=== PATIENT | female | born 1995 | race Caucasian/White ===

== ENCOUNTER 2018-02-18 20:16 | Inpatient (IN) | payer MEDICAID ==
[2018-02-18] MEDS ORDERED: RINGERS SOLUTION,LACTATED 1,000 ML IV ONE (20:41)
[2018-02-18] MEDS ORDERED: DINOPROSTONE 10 MG VAGINAL INSERT.SR PV ONE (20:43)
[2018-02-18 21:07] LABS: ABSOLUTE LYMPHOCYTES (AUTO) 2.4 10^3/uL (0.5-4.7); ABSOLUTE MONOCYTES (AUTO) 0.7 10^3/uL (0.1-1.4); BASOPHILS % (AUTO) 0.1 % (0-2); EOSINOPHILS % (AUTO) 0.3 % (0-6); HEMATOCRIT 36.5 % (36.0-47.0); HEMOGLOBIN 12.4 g/dL (12.0-15.5); LYMPHOCYTES % (AUTO) 21.7 % (13-45); MEAN CORPUSCULAR HGB CONC 33.9 g/dL (32.0-36.0); MEAN CORPUSCULAR VOLUME 86 fl (80-97); PLATELET COUNT 305 10^3/uL (150-450); RED BLOOD COUNT 4.27 10^6/uL (3.72-5.28); RED CELL DISTRIBUTION WIDTH 15.2 % (11.5-14.0); SEGMENTED NEUTROPHILS % (AUTO) 71.9 % (42-78); TOTAL CELLS COUNTED % (AUTO) 100 %; WHITE BLOOD COUNT 11.1 10^3/uL (4.0-10.5)
[2018-02-18 21:13] LABS: APPEARANCE,URINE CLOUDY; BILIRUBIN,URINE NEGATIVE (NEGATIVE); COLOR,URINE YELLOW; GLUCOSE, URINE NEGATIVE (NEGATIVE); KETONES,URINE NEGATIVE (NEGATIVE); LEUKOCYTE ESTERASE,URINE LARGE (NEGATIVE); NITRITE,URINE NEGATIVE (NEGATIVE); PROTEIN,URINE NEGATIVE (NEGATIVE); URINE SPECIFIC GRAVITY 1.013
[2018-02-18 21:28] LABS: URINE AMPHETAMINES SCREEN NEGATIVE; URINE BARBITURATES SCREEN NEGATIVE; URINE BENZODIAZEPINES SCREEN NEGATIVE; URINE COCAINE SCREEN NEGATIVE; URINE MARIJUANA (THC) SCREEN NEGATIVE; URINE METHADONE SCREEN NEGATIVE; URINE PHENCYCLIDINE SCREEN NEGATIVE
[2018-02-18] MEDS ORDERED: MISOPROSTOL 0.2 MG TABLET ONE (21:28)
[2018-02-18] MEDS ORDERED: LIDOCAINE 1% INJ-PF (10 MG/ML) 30 ML SDV ONE (21:28)
[2018-02-18] MEDS ORDERED: OXYTOCIN/NORMAL SALINE 20 UNIT/1,000 ML RTUINJ ONE (21:28)
[2018-02-18] MEDS ORDERED: DINOPROSTONE 10 MG VAGINAL INSERT.SR ONE (21:28)
[2018-02-18] MEDS: RINGERS SOLUTION,LACTATED 1,000 ML IV PRN (21:41)
--- NOTE | 2018-02-19 08:00 | Admission Physical ---
Datetime Report Generated by CPN: 02/19/2018 08:00 CURRENT ADMISSION Chief Complaint: Scheduled Induction of Labor Indication for Induction: Post Dates Admit Impression : Term, Intrauterine ; Induction of Labor Admit Plan: Admit to Unit; Initiate Labor Induction Protocol ALLERGIES Medication Allergies: No Medication Allergies: No Known Allergies (02/18/2018) Latex: No Latex Allergies OBSTETRICAL HISTORY EDC: 02/12/2018 00:00 : 1 Para: 0 Term: 0 : 0 SAB: 0 IAB: 0 Ectopic: 0 Livin Cesareans: 0 VBACs: 0 Multiple Births: 0 Gestational Diabetes: No Rh Sensitization: No Incompetent Cervix: No OJ: No Infertility: No ART Treatment: No Uterine Anomaly: No IUGR: No Hx Previous C/S: No Macrosomia: No Hx Loss/Stillborn: No PIH: No Hx : No Placenta Previa/Abruption: No Depression/PP Depression: No PTL/PROM: No Post Hemorrhage: No Current Procedures: Ultrasound Obstetrical History Comments: G1 current (BV during this 08/2017) SEE RECORDS Alcohol: No Marijuana : No Cocaine: No Other Illicit Drugs: No Cigarettes: Never Smoker. 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 Heart Disease: No Hosp/Surgery: Yes Autoimmune Disorder: No Anesthetic Complications: No Kidney Disease: No Abnormal Pap Smear: No Neuro/Epilepsy: No Psychiatric Disorders: No Other Medical Diseases: No Hepatitis/Liver Disease: No Significant Family History: No Varicosities/Phlebitis: No Trauma/Violence : No Thyroid Dysfunction: No Medical History Comments: tonsillectomy, partial adenoidectomy INFECTIOUS HISTORY Gonorrhea: No Genital Herpes: Yes Chlamydia: No Tuberculosis: No Syphilis: No Hepatitis: No HIV/AIDS Exposure: No Rash or Viral Illness: No HPV: No Infectious History Comments: +HSV-Valtrex suppression PHYSICAL EXAM General: Normal HEENT: Normal Neurologic: Normal Thyroid: Normal Heart: Normal Lungs: Normal Breast: Normal Back: Normal Abdomen: Normal Genitourinary Exam: Normal Extremities: Normal DTRs: Normal Pelvic Type: Adequate Vital Signs: Reviewed; Within Normal Limits VAGINAL EXAM Dilatation: 1 Effacement: 50 Station: -2 MEMBRANES Pooling: Negative Membranes: Intact FETUS A EGA: 41.0 Monitoring: External US FHR- Baseline: 110 Variability: Moderate 6-25bpm Accelerations: 15X15 Decelerations: None FHR Category: Category I Estimated Weight (gm): 3800 Presentation: Vertex PLANS FOR LABOR AND DELIVERY Labor and Delivery: None Pain Management: Epidural Feeding Preference: Breast Benefit of Breast Feed Discussed: Yes Circumcision: Yes INFORMED CONSENT Signature: with User ID: [email or web address]
[2018-02-19] MEDS ORDERED: OXYTOCIN/NORMAL SALINE 20 UNIT/1,000 ML RTUINJ IV PRN (09:45)
[2018-02-19] MEDS ORDERED: OXYTOCIN/NORMAL SALINE 20 UNIT/1,000 ML RTUINJ ONE (10:31)
[2018-02-19] MEDS: RINGERS SOLUTION,LACTATED 1,000 ML IV PRN (11:23)
[2018-02-19] MEDS ORDERED: DINOPROSTONE 10 MG VAGINAL INSERT.SR ONE (19:43)
[2018-02-19] MEDS ORDERED: ZOLPIDEM TARTRATE 5 MG TABLET PO PRN (21:35)
[2018-02-19] MEDS ORDERED: ZOLPIDEM TARTRATE 5 MG TABLET ONE (21:42)
[2018-02-20] MEDS: RINGERS SOLUTION,LACTATED 1,000 ML IV PRN ×2 (12:35→13:50)
[2018-02-20] MEDS ORDERED: BUPIVACAINE HCL/DEX-WATER/PF 15 MG/2 ML AMPULE ONE (12:59)
[2018-02-20] MEDS ORDERED: OXYTOCIN 10 UNIT/ML VIAL ONE (12:59)
[2018-02-20] MEDS ORDERED: ACETAMINOPHEN 1,000 MG/100 ML RTUPB IV ONE (12:59)
[2018-02-20] MEDS ORDERED: MIDAZOLAM 2 MG/2 ML INJ ONE ×2 (12:59→17:28)
[2018-02-20] MEDS ORDERED: OXYTOCIN/NORMAL SALINE 20 UNIT/1,000 ML RTUINJ ONE (12:59)
[2018-02-20] MEDS ORDERED: LIDOCAINE 2% INJ-PF (20 MG/ML) 10 ML AMPUL ONE ×4 (13:03→16:22)
[2018-02-20] MEDS ORDERED: CITRIC ACID/SODIUM CITRATE ORAL SOLN 15 ML UDCUP ONE (13:03)
[2018-02-20] MEDS ORDERED: GLYCOPYRROLATE INJ 0.4 MG/2 ML VIAL ONE (13:04)
[2018-02-20] MEDS ORDERED: EPHEDRINE SULFATE INJ 50 MG/1 ML AMPULE ONE ×2 (13:04→16:40)
[2018-02-20] MEDS ORDERED: FENTANYL CITRATE INJ/PF 100 MCG/2 ML AMPUL ONE ×3 (13:04→17:28)
[2018-02-20 13:29] LABS: ABSOLUTE LYMPHOCYTES (AUTO) 1.8 10^3/uL (0.5-4.7); ABSOLUTE MONOCYTES (AUTO) 0.7 10^3/uL (0.1-1.4); ABSOLUTE NEUT (AUTO) 8.1 10^3/uL (1.7-8.2); BASOPHILS % (AUTO) 0.2 % (0-2); EOSINOPHILS % (AUTO) 0.3 % (0-6); HEMATOCRIT 35.3 % (36.0-47.0); LYMPHOCYTES % (AUTO) 16.8 % (13-45); MEAN CORPUSCULAR HEMOGLOBIN 29.3 pg (27.0-33.4); MEAN CORPUSCULAR HGB CONC 34.1 g/dL (32.0-36.0); MEAN CORPUSCULAR VOLUME 86 fl (80-97); MONOCYTES % (AUTO) 6.5 % (3-13); PLATELET COUNT 267 10^3/uL (150-450); RED BLOOD COUNT 4.11 10^6/uL (3.72-5.28); SEGMENTED NEUTROPHILS % (AUTO) 76.2 % (42-78); TOTAL CELLS COUNTED % (AUTO) 100 %; WHITE BLOOD COUNT 10.7 10^3/uL (4.0-10.5)
[2018-02-20] MEDS ORDERED: CEFAZOLIN 1 GM/D5W RTU 2 GM/100 ML RTUPB IV ONE (15:48)
--- NOTE | 2018-02-20 16:15 | L&D Progress Notes ---
PROGRESS NOTES Datetime Report Generated by CPN: 02/20/2018 16:15 PROGRESS NOTE Impression: Reassuring Heart Rate Procedures: Sterile Vag Exam Plan: Deliver- Section Informed Consent Obtained: Section Delivery; Risks, Benefits and Alternatives Discussed Vital Signs : Reviewed Comment: Reviewed chart. HSV 1 culture positive less than 1 month ago with Primary 1st epidode per history. IgM and IgG not done in the office at dx and ordered today. NICU provider notified. Exam performed and noted possible cluster of lesions at clitoris. Spoke with patient and family - recommend Primary C/s Due to very recen Primary 1st episode and now exam with possible lesions. Reviewed risk of HSV. Pt consented and desires to proceed with Primary C/S due to HSV VAGINAL EXAM Dilatation: 1 Effacement: 50 Station: -2 MEMBRANES Pooling: Negative Membranes: Intact FETUS A : 41.0 Estimated Weight (gm): 3800 Presentation: Vertex SIGNATURE SIGNATURE: [id number] SIGNATURE: [id number] Signature: with User ID: [email or web address]
[2018-02-20] MEDS ORDERED: PROPOFOL INJ 200 MG/20 ML VIAL IV ONE (17:32)
[2018-02-20] MEDS ORDERED: CHLOROPROCAINE HCL INJ/PF 3% (30 MG/1 ML) 20 ML VIAL ONE (17:32)
[2018-02-20] MEDS ORDERED: OXYTOCIN/NORMAL SALINE 20 UNIT/1,000 ML RTUINJ IV PRN (17:56)
[2018-02-20] MEDS ORDERED: ACETAMINOPHEN 325 MG TABLET PO PRN (17:56)
[2018-02-20] MEDS ORDERED: ACETAMINOPHEN 1,000 MG/100 ML RTUPB IV PRN (17:56)
[2018-02-20] MEDS ORDERED: PROMETHAZINE HCL INJ 25 MG/1 ML VIAL IV PRN (17:56)
[2018-02-20] MEDS ORDERED: DIPH/PERTUSS(ACELL)/TETANUS VAC/PF 0.5 ML SYR (>=10YO) IM PRN (17:56)
[2018-02-20] MEDS ORDERED: OXYCODONE-ACETAMINOPHEN 5-325 MG TABLET PO PRN (17:56)
[2018-02-20] MEDS ORDERED: SIMETHICONE 80 MG TAB.CHEW PO PRN (17:56)
[2018-02-20] MEDS ORDERED: MEASLES,MUMPS&RUBELLA VACC/PF 0.5 ML VIAL SUBCUT PRN (17:56)
[2018-02-20] MEDS ORDERED: HYDROMORPHONE HCL INJ/PF 2 MG/ML AMPULE IV PRN (17:56)
[2018-02-20] MEDS ORDERED: MORPHINE SULFATE 10 MG/ML INJ ONE ×2 (18:39→20:07)
[2018-02-20] MEDS: DOCUSATE SODIUM 100 MG CAPSULE PO SCH (23:46)
--- NOTE | 2018-02-21 06:11 | Brief Operative Note ---
BRIEF OPERATIVE REPORT DATE OF SURGERY: 02/20/18 TIME OF SURGERY: 15:00 PREOPERATIVE DIAGNOSIS: Primary HSV outbreak, 41+0ega POSTOPERATIVE DIAGNOSIS: SHANNON - delivered SURGEON: PARI SANCHEZ FINDINGS: normal tubes/ovaries, normal uterus. VMI with Time of 1716, Apgars 9/9, weight 8#8oz. IVF 2000ml, UOP 100ml COMPLICATIONS: none ESTIMATED BLOOD LOSS: QBL 962ml TISSUE REMOVED OR ALTERED: placenta and cord - not sent to pathology TECHNICAL PROCEDURE: Primary section
--- NOTE | 2018-02-21 06:34 | Operative Report ---
Operative Report DATE OF SURGERY: 02/20/18 PREOPERATIVE DIAGNOSIS: Primary HSV outbreak, 41+0ega POSTOPERATIVE DIAGNOSIS: SHANNON - delivered OPERATION: Primary section SURGEON: PARI SANCHEZ ANESTHESIA: Spinal TISSUE REMOVED OR ALTERED: placenta and cord - not sent to pathology COMPLICATIONS: Primary section ESTIMATED BLOOD LOSS: QBL 962ml INTRAOPERATIVE FINDINGS: normal tubes/ovaries, normal uterus. VMI with Time of 1716, Apgars 9/9, weight 8#8oz. IVF 2000ml, UOP 100ml PROCEDURE: Primary section
[2018-02-21 07:09] LABS: HEMATOCRIT 29.1 % (36.0-47.0); HEMOGLOBIN 10.3 g/dL (12.0-15.5); MEAN CORPUSCULAR HEMOGLOBIN 30.1 pg (27.0-33.4); MEAN CORPUSCULAR HGB CONC 35.4 g/dL (32.0-36.0); MEAN CORPUSCULAR VOLUME 85 fl (80-97); PLATELET COUNT 219 10^3/uL (150-450); RED BLOOD COUNT 3.42 10^6/uL (3.72-5.28); RED CELL DISTRIBUTION WIDTH 14.7 % (11.5-14.0); WHITE BLOOD COUNT 11.7 10^3/uL (4.0-10.5)
[2018-02-21] MEDS: OXYCODONE-ACETAMINOPHEN 5-325 MG TABLET PO PRN ×3 (07:28→20:25)
[2018-02-21] MEDS: DOCUSATE SODIUM 100 MG CAPSULE PO SCH ×2 (10:56→19:12)
[2018-02-21] MEDS: PRENATAL VITAMIN W DHA CAPSULE PO SCH (10:57)
--- NOTE | 2018-02-21 13:49 | PDOC PROGRESS REPORT ---
Subjective-OB Progress Note for:: 02/21/18 Subjective: s/p primary section incision dry and intact pt denies flatus ff@[id number] mild lochia encouraged pt to ambulate pt bonding with sister and anticipate d/c tomorrow reviewed pain management Physical Exam (OB) Vital Signs: Temp Pulse Resp BP Pulse Ox 98.7 F 107 H 15 117/67 97 02/21/18 12:18 02/21/18 12:18 02/21/18 12:18 02/21/18 12:18 02/21/18 12:18 Intake & Output 02/20/18 02/21/18 02/22/18 06:59 06:59 06:59 Intake Total 80 420 Output Total 1900 500 Balance -1820 -80 - Dressing Removed: - NA Incision: Well Approximated Closure Type: Surgical Glue - Lochia Lochia Amount: Small 10-25 ml Lochia Color: Rubra/Red - Abdomen Description: Soft, Round Hernia Present: No Fundal Description: Firm, Midline Fundal Height: u/u - u/2 Objective-Diagnostic Laboratory: 02/21/18 06:58 02/21/18 02/21/18 06:58 06:58 WBC 11.7 H RBC 3.42 L Hgb 10.3 L Hct 29.1 L MCV 85 MCH 30.1 MCHC 35.4 RDW 14.7 H Plt Count 219 Blood Type B NEGATIVE
[2018-02-21 14:38] LABS: HSV-I IGG AB 3.69 index (0.00-0.90); HSV-II IGG AB <0.91 index (0.00-0.90)
[2018-02-22] MEDS: OXYCODONE-ACETAMINOPHEN 5-325 MG TABLET PO PRN ×2 (00:28→09:03)
[2018-02-22] MEDS: DOCUSATE SODIUM 100 MG CAPSULE PO SCH (09:03)
[2018-02-22] MEDS: PRENATAL VITAMIN W DHA CAPSULE PO SCH (09:06)
--- NOTE | 2018-02-22 11:11 | PDOC PROGRESS REPORT ---
Subjective-OB Progress Note for:: 02/22/18 Subjective: Ready for discharge once she is passing gas rectally. Physical Exam (OB) Vital Signs: Temp Pulse Resp BP Pulse Ox 98.5 F 107 H 18 119/56 L 97 02/22/18 10:24 02/22/18 10:24 02/22/18 10:24 02/22/18 10:24 02/22/18 10:24 Intake & Output 02/21/18 02/22/18 02/23/18 06:59 06:59 06:59 Intake Total 80 1020 Output Total 1900 500 Balance -1820 520 Weight 93.8 kg - PIH/Pre-Eclampsia DTR's: 2 + Clonus: Negative Headache: Absent Epigastric Pain: No Visual Changes: No - Dressing Removed: No Incision: Dressing Closure Type: Surgical Glue - Lochia Lochia Amount: Small 10-25 ml Lochia Color: Rubra/Red - Abdomen Description: Soft Hernia Present: No Bowel Sounds: Normoactive Flatus Presence: Absent Stool: No Fundal Description: Firm Fundal Height: u/u - u/2 Objective-Diagnostic Laboratory: 02/21/18 06:58 02/21/18 06:58 Blood Type B NEGATIVE
--- NOTE | 2018-02-22 11:30 | PDOC DISCHARGE SUMMARY ---
Final Diagnosis Discharge Date: 02/22/18 - Final Diagnosis (1) Herpes infection in Is this a current diagnosis for this admission?: Yes (2) Status post primary low transverse section Is this a current diagnosis for this admission?: Yes Discharge Data - Discharge Medication Prescriptions: Oxycodone HCl/Acetaminophen [Percocet 5-325 mg Tablet] 1 tab PO Q4HP PRN #20 tablet PRN Reason: Docusate Sodium [Colace 100 mg Capsule] 100 mg PO BID #60 capsule Ibuprofen [Motrin 800 mg Tablet] 800 mg PO Q8H PRN #30 tab PRN Reason: Home Medications: Pnv 102/Iron/Folate 1/Dss/Dha [Vitafol Fe+ Docusate Combo Pck] 1 cap PO DAILY Valacyclovir HCl [Valtrex 500 mg Tablet] 1 tab PO BID 02/18/18 Docusate Sodium [Colace 100 mg Capsule] 100 mg PO BID #60 capsule 02/22/18 Ibuprofen [Motrin 800 mg Tablet] 800 mg PO Q8H PRN #30 tab 02/22/18 Oxycodone HCl/Acetaminophen [Percocet 5-325 mg Tablet] 1 tab PO Q4HP PRN #20 tablet 02/22/18 Gestational Age: 41 wks Reason(s) for Admission: Other Admission Note: Active HSV infection Procedures: Ultrasound Intrapartum Procedure(s): : Low Cervical, Transverse - [place] Data Baby 1 Male at 1 minute: 9 at 5 minutes: 9 Weight: 3.856 kg Home with Mother: No Complications: Yes - Observation - Diagnosis Test Laboratory: Temp Pulse Resp BP Pulse Ox 98.5 F 107 H 18 119/56 L 97 02/22/18 10:24 02/22/18 10:24 02/22/18 10:24 02/22/18 10:24 02/22/18 10:24 02/18/18 02/18/18 02/20/18 20:35 20:52 13:19 RBC 4.27 4.11 Hgb 12.4 12.0 Hct 36.5 35.3 L Urine Opiates Screen NEGATIVE 02/21/18 06:58 RBC 3.42 L Hgb 10.3 L Hct 29.1 L Urine Opiates Screen - Discharge information/Instructions Discharge Activity: Activity As Tolerated, Balance Activity w/Rest, No Lifting Over 10 Pounds, No Lifting/Push/Pulling, Pelvic Rest, Slowly Increase Activity, No tub bath Discharge Diet: Regular Disposition: HOME, SELF-CARE Follow up with: [facility] in: 1, Weeks
[2018-02-22 12:32] VITALS: BP 126/70
[2018-02-22] MEDS ORDERED: VALACYCLOVIR HCL 500 MG TABLET PO SCH (18:00)
== END 2018-02-22 16:05 | disposition home or self-care (01) | DRG 765 ==
LOC: LR 20:16 → 2S 02-20 20:20
PROVIDERS: ADMIT Obstetrics & Gynecology; ATTEND Student in an Organized Health Care Education/Training Program
PROC: 10D00Z1 Extraction of Products of Conception, Low, Open Approach (ICD-10-PCS; principal; 2018-02-20)
PROC: 3E0234Z Introduction of Serum, Toxoid and Vaccine into Muscle, Percutaneous Approach (ICD-10-PCS; 2018-02-21)
DX: O48.0 Post-term pregnancy (principal); B00.89 Other herpesviral infection; O36.0930 Maternal care for other rhesus isoimmunization, third trimester, not applicable or unspecified; B00.1 Herpesviral vesicular dermatitis; Z3A.41 41 weeks gestation of pregnancy; Z37.0 Single live birth; O99.214 Obesity complicating childbirth; E66.9 Obesity, unspecified; Z68.37 Body mass index [BMI] 37.0-37.9, adult
CPT/HCPCS: 1961; 36415; 80307; 81005; 85025; 85027; 85461; 86592; 86695; 86696; 86850; 86900; 86901; 94760; 94799; C1765; J0131; J0690; J1170; J2250; J2270; J2400; J2590; J2704; J2790; J3010; J3490